=== PATIENT | male | born 1985 | race African-American/Black ===

== ENCOUNTER 2023-01-03 17:33 | Emergency (ER) | payer OTHER ==
[2023-01-03 17:58] VITALS: BP 128/87; PULSE 92; RESP 20; TEMP 98.2; BMI 42.5
== END 2023-01-03 19:21 | disposition home or self-care (01) ==
LOC: JERFT 17:33 → JER 17:33 → JERFT 19:21
DX: J06.9 Acute upper respiratory infection, unspecified (principal); R05.1 Acute cough; R09.81 Nasal congestion
CPT/HCPCS: 99283-25